=== PATIENT | female | born 1985 | race Caucasian/White ===

== ENCOUNTER 2017-01-13 23:16 | Emergency (ER) | payer SELFPAY | END 2017-01-14 00:12 | disposition left against medical advice (07) | LOC: E/R 23:16 | DX: Z53.21 Procedure and treatment not carried out due to patient leaving prior to being seen by health care provider (principal) ==

== ENCOUNTER 2017-06-23 21:18 | Emergency (ER) | payer OTHER ==
[~2017-06-23] VITALS: Ht 152.4 cm; Wt 62.0 kg
[2017-06-23 21:25] VITALS: Ht 152.4 cm; Wt 62.0 kg
[2017-06-23] MEDS ORDERED: ONDANSETRON 4 MG INJ IV STA (21:44)
[2017-06-23] MEDS ORDERED: SOD CHLORIDE 0.9% 1,000 ML IV STA (21:44)
[2017-06-23] MEDS ORDERED: morphine 4 MG/ML VIAL IV STA (21:44)
[2017-06-23] MEDS ORDERED: VANCOMYCIN 1 GM (PMX) 250 ML IVPB SCH (22:00)
[2017-06-23 22:30] LABS: BASOPHILS % 0.3 % (0.0-2.0); EOSINOPHILS # 0.2 10^3/ul (0.0-0.5); HEMATOCRIT 44.6 % (37.0-47.0); HEMOGLOBIN 14.7 g/dl (12.0-16.0); LYMPHOCYTES # 1.3 10^3/ul (0.8-2.9); LYMPHOCYTES % 12.4 % (15.0-51.0); MEAN CORPUSCULAR VOLUME 97.2 fl (82.0-101.0); MEAN PLATELET VOLUME 9.2 fl (7.4-10.4); MONOCYTE # 0.7 10^3/ul (0.3-0.9); MONOCYTES % 6.6 % (0.0-11.0); NEUTROPHIL # 8.2 10^3/ul (1.6-7.5); NEUTROPHILS % 78.4 % (39.0-77.0); PLATELET COUNT 434 10^3/UL (140-415); RED BLOOD COUNT 4.59 10^6/ul (4.20-5.40); RED CELL DISTRIBUTION WIDTH 12.8 % (11.5-14.5); WHITE BLOOD COUNT 10.5 10^3/ul (4.8-10.8)
[2017-06-23 22:50] LABS: CALCIUM 9.4 mg/dl (8.4-10.2); CREATININE 0.74 mg/dl (0.44-1.00); POTASSIUM 3.5 mmol/L (3.5-5.1)
[2017-06-24] MEDS ORDERED: HYDR-906 PO (02:08)
[2017-06-24] MEDS ORDERED: NAPR-688 PO (02:08)
[2017-06-24] MEDS ORDERED: CEPH-443 PO (02:08)
[2017-06-24] MEDS ORDERED: SULF1TAB31 PO (02:08)
--- NOTE | 2017-06-24 02:18 | ERD ---
ER Documentation Chief Complaint Chief Complaint left foot ankle swelling x 2 days HPI 32-year-old female does not remember any insult or trauma to the ankle but has swelling and erythema increasing for the last 2 days. It is painful to walk and to touch. She has no fevers or chills. She is otherwise healthy and does not have diabetes. ROS All systems reviewed and are negative except as per history of present illness. Medications Home Meds Active Scripts Naproxen* (Naproxen*) 500 Mg Tablet, 500 MG PO BID Y for PAIN, #20 TAB Prov:SAMEER CABEZAS DO 06/24/17 Hydrocodone/Acetaminophen (Canastota 5-325 Tablet) 1 Each Tablet, 1 EACH PO Q6, #20 TAB Prov:SAMEER CABEZAS DO 06/24/17 Cephalexin* (Keflex*) 500 Mg Capsule, 500 MG PO Q8, #28 CAP Prov:SAMEER CABEZAS DO 06/24/17 Sulfamethoxazole/Trimethoprim* (Bactrim Ds* Tablet) 1 Each Tablet, 1 TAB PO BID , #20 TAB Prov:SAMEER CABEZAS DO 06/24/17 Allergies Allergies: Coded Allergies: No Known Allergy (Unverified , 01/12/16) PMhx/Soc Medical and Surgical Hx: pt denies Medical Hx History of Surgery: Yes (appendectomt. hysterectomy, x4) Anesthesia Reaction: No Hx Neurological Disorder: No Hx Respiratory Disorders: No Hx Cardiac Disorders: No Hx Psychiatric Problems: No Hx Miscellaneous Medical Probl: No Hx Alcohol Use: No Hx Substance Use: No Hx Tobacco Use: No Smoking Status: Never smoker Physical Exam Vitals Vital Signs Date Time Temp Pulse Resp B/P Pulse Ox O2 Delivery O2 Flow Rate FiO2 06/23/17 22:24 98.8 84 108/69 100 Room Air 06/23/17 21:25 98.6 89 18 128/80 100 Physical Exam Const: [] Mild distress Head: Atraumatic Eyes: Normal Conjunctiva ENT: Normal External Ears, Nose and Mouth. Neck: Full range of motion..~ No meningismus. Skin: No petechiae or rashes Ext: No cyanosis, pharyngeal edema with mild erythema and mild calor from both sides of the foot laterally extending up past the ankle several centimeters and fading into the normal tissue around the mid calf. There is slightly decreased capillary refill of the toes. Distal pulses intact. Neur: Awake and alert Psych: Normal Mood and Affect Result Diagram: 06/23/17214906/23/172149 Results 24 hrs Laboratory Tests Test 06/23/17 21:50 White Blood Count 10.510^3/ul Red Blood Count 4.5910^6/ul Hemoglobin 14.7g/dl Hematocrit 44.6% Mean Corpuscular Volume 97.2fl Mean Corpuscular Hemoglobin 32.0pg Mean Corpuscular Hemoglobin Concent 33.0g/dl Red Cell Distribution Width 12.8% Platelet Count 80124^3/UL Mean Platelet Volume 9.2fl Neutrophils % 78.4% Lymphocytes % 12.4% Monocytes % 6.6% Eosinophils % 2.0% Basophils % 0.3% Nucleated Red Blood Cells % 0.0/100WBC Neutrophils # 8.210^3/ul Lymphocytes # 1.310^3/ul Monocytes # 0.710^3/ul Eosinophils # 0.210^3/ul Basophils # 0.010^3/ul Nucleated Red Blood Cells # 0.010^3/ul Sodium Level 141mmol/L Potassium Level 3.5mmol/L Chloride Level 103mmol/L Carbon Dioxide Level 26mmol/L Anion Gap 16 Blood Urea Nitrogen 22mg/dl Creatinine 0.74mg/dl Glucose Level 58mg/dl Calcium Level 9.4mg/dl Current Medications Medications (Trade) Dose Ordered Sig/Bettie Route PRN Reason Start Time Stop Time Status Last Admin Dose Admin Sodium Chloride (NS) 1,000 ml @ 1,000 mls/hr Q1H STAT IV 06/23/17 21:44 06/23/17 22:43 DC 06/23/17 21:59 Morphine Sulfate (morphine) 4 mg ONCE STAT IV 06/23/17 21:44 06/23/17 21:49 DC 06/23/17 21:58 Ondansetron HCl 4 mg 4 mg ONCE STAT IV 06/23/17 21:44 06/23/17 21:49 DC 06/23/17 21:58 Vancomycin HCl (Vancocin) 250 ml @ 125 mls/hr ONCE IVPB 06/23/17 22:00 06/23/17 23:59 DC 06/23/17 21:58 Procedures/MDM Acute cellulitis that I would say is moderate to severe. Patient was given a liter of normal saline and vancomycin. She has no signs of sepsis whatsoever. I told her that I would recommend admission however she has children at home and states that she has to go home and cannot be admitted tonight. I am going to discharge with Bactrim, Keflex, naproxen and Canastota as well as strict return precautions to the ER. Told her to come back for any spread of the infection or if it is not going away and advise a [address] Labs show mild hypoglycemia but she has no symptoms and is taking good p.o. and has no history of diabetes. Departure Diagnosis: Primary Impression: Cellulitis of left foot Condition: Fair Patient Instructions: Cellulitis Referrals: [facility] YOU HAVE RECEIVED A MEDICAL SCREENING EXAM AND THE RESULTS INDICATE THAT YOU DO NOT HAVE A CONDITION THAT REQUIRES URGENT TREATMENT IN THE EMERGENCY DEPARTMENT. FURTHER EVALUATION AND TREATMENT OF YOUR CONDITION CAN WAIT UNTIL YOU ARE SEEN IN YOUR DOCTORS OFFICE WITHIN THE NEXT 1-2 DAYS. IT IS YOUR RESPONSIBILITY TO MAKE AN APPOINTMENT FOR FOLOW-UP CARE. IF YOU HAVE A PRIMARY DOCTOR --you should call your primary doctor and schedule an appointment IF YOU DO NOT HAVE A PRIMARY DOCTOR YOU CAN CALL OUR PHYSICIAN REFERRAL HOTLINE AT IF YOU CAN NOT AFFORD TO SEE A PHYSICIAN YOU CAN CHOSE FROM THE FOLLOWING [facility] [address] [facility] [facility] [address] [facility] [address] [facility] [facility] [address] [facility] [facility] [address] [facility]. [facility]. [address] Additional Instructions: Call your primary care doctor TOMORROW for an appointment during the next 1-2 days.See the doctor sooner or return here if your condition worsens before your appointment time. SAMEER CABEZAS DO Jun 24, 2017 02:18
[2017-06-24 02:23] VITALS: BP 102/57; PULSE 78; RESP 16; TEMP 98.8
== END 2017-06-24 02:26 | disposition home or self-care (01) ==
LOC: E/R 21:18
DX: L03.116 Cellulitis of left lower limb (principal)
CPT/HCPCS: 36415; 80048; 85025; 96374; 96375; J2270; J2405; J3370; J7030; Z7502

== ENCOUNTER 2017-10-23 22:42 | Emergency (ER) | END 2017-10-24 03:00 | disposition left against medical advice (07) ==